=== PATIENT | male | born 1980 | race Caucasian/White ===

== ENCOUNTER 2020-11-29 18:58 | Emergency (ER) | payer OTHER ==
[2020-11-29] MEDS ORDERED: TORADOL 10 MG T10 MG PO (20:53)
== END 2020-11-29 21:08 | disposition home or self-care (01) ==
LOC: ER1 18:58
DX: S99.922A Unspecified injury of left foot, initial encounter (principal); F17.200 Nicotine dependence, unspecified, uncomplicated; X58.XXXA Exposure to other specified factors, initial encounter
CPT/HCPCS: 73610; 96372; 99283; J1885

== ENCOUNTER 2020-12-31 11:43 | Emergency (ER) | payer OTHER ==
[~2020-12-31 11:43] MED LIST: TORADOL 10 MG T10 MG PO
[2020-12-31 12:35] LABS: HEMOGLOBIN 15.9 gm/dl (14.0-17.5); RED BLOOD COUNT 5.36 M/UL (4.20-5.50); WHITE BLOOD COUNT 8.7 K/UL (4.5-11.0)
[2020-12-31 13:10] LABS: BUN/CREATININE RATIO 17 (0-10)
[2020-12-31] MEDS ORDERED: ASPIR-TRIN325 MG PO (14:23)
[2020-12-31] MEDS ORDERED: ZOFRAN ODT 4 MG4 MG SL (14:23)
== END 2020-12-31 14:33 | disposition home or self-care (01) ==
LOC: ER1 11:43
PROVIDERS: Physician Assistant
DX: U07.1 COVID-19 (principal); F17.200 Nicotine dependence, unspecified, uncomplicated
CPT/HCPCS: 0240U; 71045; 80053; 82550; 82553; 83874; 84484; 85025; 85379; 93005; 96374; 99285; J1885

== ENCOUNTER → 2021-01-27 | Outpatient (CLI) | payer OTHER ==
[~2021-01-27] MED LIST changes: +ASPIR-TRIN325 MG PO; +ZOFRAN ODT 4 MG4 MG SL
== END ==
LOC: KOH-I 15:00
DX: M79.672 Pain in left foot (principal); R93.6 Abnormal findings on diagnostic imaging of limbs
CPT/HCPCS: 73700

== ENCOUNTER 2021-02-24 21:16 | Emergency (ER) | payer OTHER | END 2021-02-24 23:10 | disposition home or self-care (01) | LOC: ER1 21:16 | DX: S93.402A Sprain of unspecified ligament of left ankle, initial encounter (principal); F17.210 Nicotine dependence, cigarettes, uncomplicated; X50.1XXA Overexertion from prolonged static or awkward postures, initial encounter | CPT/HCPCS: 73610; 73630; 96372; 99283; J1885 ==